=== PATIENT | male | born 1945 | race Caucasian/White ===

== ENCOUNTER 2017-09-08 23:36 | Observation (INO) | payer BC ==
[~2017-09-08] VITALS: Ht 181.6 cm; Wt 97.3 kg
[2017-09-09 00:16] LABS: HEMATOCRIT 47.8 % (38.0-50.0); HEMOGLOBIN 16.9 G/DL (12.5-16.6); MCH 34.6 PG (29.0-34.0); MCHC 35.4 G/DL (30.0-36.0); MCV 97.8 FL (86-99); PLATELET COUNT 306 K/uL (156-360); RBC DIS.WIDTH-CV 12.3 % (11.8-14.6); RBC DIS.WIDTH-SD 44.5 % (39-53); RED BLOOD COUNT 4.89 M/uL (4.00-5.50); WHITE BLOOD COUNT 20.7 K/uL (4.1-10.2)
[2017-09-09 00:25] LABS: ALBUMIN 4.3 g/dL (3.2-4.8); CHLORIDE 100 mEq/L (99-109); POTASSIUM 4.4 mEq/L (3.7-5.4); SODIUM 136 mEq/L (136-147)
[2017-09-09 00:28] LABS: GLUCOSE 143 mg/dL (70-99); TOTAL PROTEIN 7.1 g/dL (6.4-8.3)
[2017-09-09 00:30] LABS: TOTAL BILIRUBIN 0.7 mg/dL (0.0-1.0)
[2017-09-09 00:31] LABS: ALKALINE PHOSPHATASE 59 IU/L (3-129)
[2017-09-09 00:32] LABS: CREATININE 1.1 mg/dL (0.6-1.3); GFR ESTIMATE (CALCULATED) > 59 mL/min/ (58.99-99999)
[2017-09-09 00:33] LABS: AST (GOT) 16 IU/L (2-34); DIRECT BILIRUBIN 0.3 mg/dL (0.0-0.3); UREA NITROGEN (BUN) 26 mg/dL (9-23)
[2017-09-09 00:34] LABS: ALT (GPT) 14 IU/L (3-49)
[2017-09-09 00:35] LABS: LIPASE 28 U/L (1.0-51.0)
[2017-09-09 00:38] LABS: TROP-I INTERPRETATION NEGATIVE; TROPONIN-I < 0.01 ng/mL (0.0-0.30)
[2017-09-09 05:38] VITALS: BP 95/53
[2017-09-09 06:21] LABS: HEMATOCRIT 44.5 % (38.0-50.0); HEMOGLOBIN 15.5 G/DL (12.5-16.6); MCH 34.4 PG (29.0-34.0); MCHC 34.8 G/DL (30.0-36.0); MCV 98.7 FL (86-99); PLATELET COUNT 270 K/uL (156-360); RBC DIS.WIDTH-CV 12.4 % (11.8-14.6); RBC DIS.WIDTH-SD 44.9 % (39-53); RED BLOOD COUNT 4.51 M/uL (4.00-5.50); WHITE BLOOD COUNT 13.9 K/uL (4.1-10.2)
[2017-09-09 06:31] LABS: TROP-I INTERPRETATION NEGATIVE; TROPONIN-I 0.01 ng/mL (0.0-0.30)
[2017-09-09 06:33] LABS: ALBUMIN 3.9 G/DL (3.2-4.8); ALKALINE PHOSPHATASE 44 IU/L (3-129); ALT (GPT) 10 IU/L (3-49); AST (GOT) 12 IU/L (2-34); CHLORIDE 101 MEQ/L (99-109); GFR ESTIMATE (CALCULATED) > 59 mL/min/ (58.99-99999); GLUCOSE 145 mg/dL (70-99); POTASSIUM 4.9 MEQ/L (3.7-5.4); SODIUM 135 MEQ/L (136-147); TOTAL PROTEIN 6.3 G/DL (6.4-8.3); UREA NITROGEN (BUN) 27 mg/dL (9-23)
[2017-09-09 07:53] VITALS: BP 116/58
[2017-09-09 09:34] LABS: HEMOGLOBIN A1c (GLYCOHEMOGLOB) 6.4 % (Below 5.7)
[2017-09-09 11:57] VITALS: BP 124/76
[2017-09-09] MEDS ORDERED: GLUCOPHAGE500 MG PO (12:17)
[2017-09-09] MEDS ORDERED: ZOCOR10 MG PO (12:17)
[2017-09-09] MEDS ORDERED: PRINIVIL10 MG PO (12:17)
[2017-09-09] MEDS ORDERED: XANAX0.5 MG PO (12:18)
[2017-09-09] MEDS ORDERED: LOPRESSOR25 MG PO (12:18)
[2017-09-09] MEDS ORDERED: NEURONTIN100 MG PO (12:18)
[2017-09-09] MEDS ORDERED: LEVO-T150 MCG PO (12:19)
[2017-09-09] MEDS ORDERED: SUPER B-50 COM1 EACH PO (12:19)
[2017-09-09 12:37] LABS: TROP-I INTERPRETATION NEGATIVE; TROPONIN-I 0.01 ng/mL (0.0-0.30)
[2017-09-09] MEDS ORDERED: LO-DOSE ASPIRIN81 M1 PO (12:45)
[2017-09-09] MEDS ORDERED: PEPCID20 MG PO (12:57)
== END 2017-09-09 16:30 | disposition home or self-care (01) ==
LOC: EME 23:36 → EDOF 09-09 04:01 → ENRESERV 09-09 04:06 → 5WEST 09-09 05:26
PROVIDERS: Internal Medicine
DX: R07.89 Other chest pain (principal); I25.119 Atherosclerotic heart disease of native coronary artery with unspecified angina pectoris; Z95.5 Presence of coronary angioplasty implant and graft; I45.9 Conduction disorder, unspecified; N17.9 Acute kidney failure, unspecified; Z95.0 Presence of cardiac pacemaker; D72.828 Other elevated white blood cell count; E11.51 Type 2 diabetes mellitus with diabetic peripheral angiopathy without gangrene; I10 Essential (primary) hypertension; E78.5 Hyperlipidemia, unspecified; E07.9 Disorder of thyroid, unspecified; F17.210 Nicotine dependence, cigarettes, uncomplicated; M51.36 Other intervertebral disc degeneration, lumbar region; Z95.820 Peripheral vascular angioplasty status with implants and grafts; Z90.49 Acquired absence of other specified parts of digestive tract; Z82.49 Family history of ischemic heart disease and other diseases of the circulatory system; Z82.3 Family history of stroke; Z88.5 Allergy status to narcotic agent; Z79.84 Long term (current) use of oral hypoglycemic drugs; Z79.82 Long term (current) use of aspirin; Z79.01 Long term (current) use of anticoagulants
CPT/HCPCS: 71046; 80048; 80053; 80076; 82948; 83036; 83630; 83690; 84484; 85027; 87177; 87493; 93005; 99281; 99285; C9113; G0378; J1644; J7030; S0028